=== PATIENT | female | born 1945 | race Caucasian/White ===

== ENCOUNTER 2016-08-10 15:17 | Emergency (ER) | payer MEDICARE, BC ==
[2016-08-10 18:33] LABS: APPEARANCE CLEAR (CLEAR); BILIRUBIN NEGATIVE (NEGATIVE); COLOR YELLOW (YELLOW); GLUCOSE NEGATIVE (NEGATIVE); KETONE NEGATIVE (NEGATIVE); LEUKOCYTE ESTERASE NEGATIVE (NEGATIVE); NITRITE NEGATIVE (NEGATIVE); PROTEIN NEGATIVE (NEGATIVE); UROBILINOGEN NORMAL (NORMAL)
== END 2016-08-10 19:05 | disposition home or self-care (01) ==
LOC: D.ER 15:17
PROVIDERS: Emergency Medicine
DX: M54.10 Radiculopathy, site unspecified (principal); M51.36 Other intervertebral disc degeneration, lumbar region; J44.9 Chronic obstructive pulmonary disease, unspecified